=== PATIENT | male | born 1995 | race Caucasian/White ===

== ENCOUNTER 2017-10-16 12:48 | Emergency (ER) ==
[2017-10-16 12:53] VITALS: BP 126/75; TEMP 98; BMI 29.8
--- NOTE | 2017-10-16 13:04 | ED.PDOC ---
General ED Provider: Dr. JIAN BOND Chief Complaint: Hand Pain/Injury Stated Complaint: Rt Hand Pain. fell a week ago this past Sunday and now having moderate pain and swelling. was playing basketball and well with arm outstretched landing wrong on his hand. forearm extended with hand fixed hitting the ground. Experiencing discomfort with movement and flexion of wrist. Time Seen by Physician: 13:05 Mode of Arrival: Walk-In Information Source: Patient Exam Limitations: No limitations Nursing and Triage Documentation Reviewed and Agree: Yes Does patient meet sepsis criteria?: No System Inflammatory Response Syndrome: Not Applicable Sepsis Protocol: For patient's 13 years and over: Temp is 96.8 and below OR 101 and greater Pulse >90 BPM Resp >20/minute Acutely Altered Mental Status Are patient's symptoms suggestive of a new infection, such as: -Pneumonia -Skin, Soft Tissue -Endocarditis -UTI -Bone, Joint Infection -Implantable Device -Acute Abdominal Infection -Wound Infection -Meningitis -Blood Stream Catheter Infection -Unknown Review of Systems - Review Of Systems Constitutional: Reports: No symptoms Eyes: Reports: No symptoms Ears, Nose, Mouth, Throat: Reports: No symptoms Respiratory: Reports: No symptoms Cardiac: Reports: No symptoms GI: Reports: No symptoms : Reports: No symptoms Musculoskeletal: Reports: No symptoms, Joint pain Skin: Reports: No symptoms Neurological: Reports: No symptoms Endocrine: Reports: No symptoms Hematologic/Lymphatic: Reports: No symptoms All Other Systems: Reviewed and Negative Past Medical History - Past Medical History Previously Healthy: Yes Endocrine: Reports: None Cardiovascular: Reports: None Respiratory: Reports: None Hematological: Reports: None Gastrointestinal: Reports: None Genitourinary: Reports: None Neuro/Psych: Reports: None Musculoskeletal: Reports: None Cancer: Reports: None - Surgical History General Surgical History: Reports: None - Family History Family History: Reports: None - Social History Smoking Status: Never smoker Hx Substance Use: No Alcohol Screening: None - Immunizations Tetanus Shot up to Date: Yes Physical Exam - Physical Exam Appearance: Well-appearing, Well-nourished Ill-appearing: None Pain Distress: Mild Eyes: ISABEL, EOMI, Conjunctiva clear ENT: Ears normal, Nose normal, Oropharynx normal Respiratory: Airway patent, Breath sounds clear, Breath sounds equal, Respirations nonlabored Cardiovascular: RRR, Pulses normal, No rub, No murmur GI/: Soft, Nontender, No masses, Bowel sounds normal, No Organomegaly Musculoskeletal: Normal strength, ROM intact, No edema, No calf tenderness, Limited ROM (Rt 5th Metacarpal limited movement due to pain ) Skin: Warm, Dry, Normal color Neurological: Sensation intact, Motor intact, Reflexes intact, Cranial nerves intact, Alert, Oriented Psychiatric: Affect appropriate, Mood appropriate Interpretation - Radiology Interpretation Radiology Interpretation By: ED Physician Exam Interpreted: Other (Fracture =minimally displaced neck Rt 5th distal Metacarpal) Critical Care Note - Critical Care Note Total Time (mins): 0 Course - Course Orders, Labs, Meds: Orders Category Date Time Status Ketorolac Tromethamine [Toradol] MEDS 10/16/17 13:12 Discontinued 10 mg PO ONCE STA HAND, RIGHT 3 VIEWS Stat RADS 10/16/17 13:14 Completed WRIST, RIGHT 3 VIEWS Stat RADS 10/16/17 13:14 Completed Medications Discontinued Medications Generic Name Dose Route Start Last Admin Trade Name Freq PRN Reason Stop Dose Admin Ketorolac Tromethamine 10 mg 10/16/17 13:12 10/16/17 13:17 Toradol PO 10/16/17 13:13 10 mg ONCE STA Administration Vital Signs: Temp Pulse Resp BP Pulse Ox 10/16/17 12:49 98.0 F 57 L 18 126/75 97 Departure - Departure Time of Disposition: 13:45 Disposition: HOME SELF-CARE Discharge Problem: Displaced fracture of neck of right fifth metacarpal bone Instructions: Hand Fracture (ED) Condition: Good Pt referred to PMD for follow-up: Yes ([facility] in [facility]) IPMP verified?: No Additional Instructions: Keep Splint in place May take Ibuprofen for pain as neede GO TO [facility] for follow up orthopedic care tomorrow Allergies/Adverse Reactions: Allergies No Known Allergies Allergy (Verified 10/16/17 12:53) Home Medications: Ambulatory Orders 1 [No Reported Medications] 10/16/17 Disposition Discussed With: Patient
[2017-10-16] MEDS ORDERED: TORADOL PO STA (13:12)
--- NOTE | 2017-10-16 13:41 | DI ---
EXAM: Three views of the right wrist. History: Right wrist trauma. Findings: Mild to moderately displaced dorsal apex angulated fracture of the right fifth metacarpal neck with adjacent soft tissue swelling. No dislocation. No other fractures are seen. Impression: Right fifth metacarpal neck fracture
--- NOTE | 2017-10-16 13:41 | DI ---
EXAM: Three views of the right hand. History: Right hand trauma. Findings: Mild to moderately displaced and dorsal apex angulated fracture of the right fifth metacar pal neck with adjacent soft tissue swelling. No dislocation. Impression: Right fifth metacarpal neck fracture
== END 2017-10-16 14:04 | disposition home or self-care (01) ==
LOC: ED 12:48
DX: S62.336A Displaced fracture of neck of fifth metacarpal bone, right hand, initial encounter for closed fracture (principal); W19.XXXA Unspecified fall, initial encounter; Y93.67 Activity, basketball
CPT/HCPCS: 99283

== ENCOUNTER 2018-07-25 10:20 | Emergency (ER) ==
[2018-07-25 10:27] VITALS: BP 128/82; TEMP 97.9; BMI 32.3
--- NOTE | 2018-07-25 11:22 | CT ---
EXAM: CT abdomen pelvis without contrast HISTORY: Pain, diarrhea COMPARISON: None TECHNIQUE: CT abdomen pelvis performed without intravenous contrast. Coronal and sagittal reformatt ed images obtained FINDINGS: Lung bases clear. No free air. No acute abnormalities of the bones. Heart normal in siz e. Evaluation organ parenchyma limited without contrast. Liver unremarkable. Gallbladder unremarka ble. Pancreas unremarkable. Spleen unremarkable. Adrenals unremarkable. Aorta normal in caliber. No hydronephrosis or nephrolithiasis. No calculi visualized in the normal course of the ureters. P rostate normal in size. No lymphadenopathy or ascites. Minimal fat-containing periumbilical hernia. Small hiatal hernia. No dilated loops small bowel. Appendix appears normal. Colon unremarkable. No inflammatory stranding identified in the abdomen or pelvis. IMPRESSION: 1. No bowel or urinary obstruction. Normal appendix. 2. Abundant normal to top normal sized mesenteric lymph nodes, nonspecific, though can be seen in me senteric adenitis or reactive lymph nodes. 3. Small hiatal hernia.
--- NOTE | 2018-07-25 11:54 | ED.PDOC ---
General ED Provider: Dr. YAMEL LOCKETT Chief Complaint: Diarrhea Stated Complaint: abdominal pain nausea, vomiting , diarrhea Time Seen by Physician: 10:30 (seen with pt's nurse at all times ) Mode of Arrival: Walk-In Information Source: Patient Exam Limitations: No limitations Nursing and Triage Documentation Reviewed and Agree: Yes Does patient meet sepsis criteria?: No System Inflammatory Response Syndrome: Not Applicable Sepsis Protocol: For patient's 13 years and over: Temp is 96.8 and below OR 101 and greater Pulse >90 BPM Resp >20/minute Acutely Altered Mental Status Are patient's symptoms suggestive of a new infection, such as: -Pneumonia -Skin, Soft Tissue -Endocarditis -UTI -Bone, Joint Infection -Implantable Device -Acute Abdominal Infection -Wound Infection -Meningitis -Blood Stream Catheter Infection -Unknown GI Complaint Exam - Vomiting/Diarrhea Complaint/Exam Onset/Duration: 2 days Symptoms Are: Resolved Episodes of Vomiting over last 24 Hours: 7 Episodes of Diarrhea Over Last 24 Hours: 9 Initial Severity: Moderate Current Severity: Mild Character of Vomiting: Reports: Non-bilious Aggravating: Reports: None Alleviating: Reports: None Associated Signs and Symptoms: Reports: Abdominal pain. Denies: Dizziness, Light-headedness, Melena, Hematemesis, Fever, Cramping Non-GI Risk Factors: Reports: None Surgical Obstruction Risk Factors: Reports: None Related Surgical History: Reports: None Abdominal Findings: Present: None Differential Diagnoses: Viral Gastroenteritis Review of Systems - Review Of Systems Constitutional: Reports: No symptoms Eyes: Reports: No symptoms Ears, Nose, Mouth, Throat: Reports: No symptoms Respiratory: Reports: No symptoms Cardiac: Reports: No symptoms GI: Reports: Abdominal pain, Diarrhea, Nausea, Poor appetite, Vomiting : Reports: No symptoms Musculoskeletal: Reports: No symptoms Skin: Reports: No symptoms Neurological: Reports: No symptoms Endocrine: Reports: No symptoms Hematologic/Lymphatic: Reports: No symptoms All Other Systems: Reviewed and Negative Past Medical History - Past Medical History Previously Healthy: Yes Endocrine: Reports: None Cardiovascular: Reports: None Respiratory: Reports: None Hematological: Reports: None Gastrointestinal: Reports: None Genitourinary: Reports: None Neuro/Psych: Reports: None Musculoskeletal: Reports: None Cancer: Reports: None - Surgical History General Surgical History: Reports: None - Family History Family History: Reports: None - Social History Smoking Status: Never smoker Hx Substance Use: No Alcohol Screening: None - Immunizations Tetanus Shot up to Date: Yes Physical Exam - Physical Exam Appearance: Well-appearing, No pain distress, Well-nourished Eyes: ISABEL, EOMI, Conjunctiva clear ENT: Ears normal, Nose normal, Oropharynx normal Respiratory: Airway patent, Breath sounds clear, Breath sounds equal, Respirations nonlabored Cardiovascular: RRR, Pulses normal, No rub, No murmur GI/: Soft, Nontender, No masses, Bowel sounds normal, No Organomegaly Musculoskeletal: Normal strength, ROM intact, No edema, No calf tenderness Skin: Warm, Dry, Normal color Neurological: Sensation intact, Motor intact, Reflexes intact, Cranial nerves intact, Alert, Oriented Psychiatric: Affect appropriate, Mood appropriate Critical Care Note - Critical Care Note Total Time (mins): 0 Course - Course Hematology/Chemistry: 07/25/18 10:50 07/25/18 10:50 Orders, Labs, Meds: Lab Review 07/25/18 07/25/18 07/25/18 10:40 10:50 10:50 WBC 6.43 RBC 5.38 Hgb 15.4 Hct 43.9 MCV 81.6 MCH 28.6 MCHC 35.1 RDW Coeff of [place] 12.4 Plt Count 197 Immature Gran % (Auto) 0.2 Neut % (Auto) 76.2 Lymph % (Auto) 14.6 [place] % (Auto) 7.9 Eos % (Auto) 0.8 Baso % (Auto) 0.3 Immature Gran # (Auto) 0.0 Neut # (Auto) 4.9 Lymph # (Auto) 0.9 [place] # (Auto) 0.5 Eos # (Auto) 0.1 Baso # (Auto) 0.0 Sodium 140.5 Potassium 3.73 Chloride 103.7 Carbon Dioxide 26.1 Anion Gap 14.43 BUN 13.8 Creatinine 0.83 Estimated GFR (MDRD) 116.00 BUN/Creatinine Ratio 16.62 Glucose 96.9 Calcium 9.17 Total Bilirubin 0.99 AST 60.9 H ALT 95.2 H Alkaline Phosphatase 101.4 Total Protein 8.13 Albumin 5.05 H Globulin 3.08 Albumin/Globulin Ratio 1.63 Urine Color Yellow Urine Clarity Clear Urine pH 6.0 Ur Specific [place] 1.020 Urine Protein 1+ Urine Glucose (UA) Negative Urine Ketones Negative Urine Blood Negative Urine Nitrite Negative Urine Bilirubin Negative Urine Urobilinogen 2.0 Ur Leukocyte Esterase Negative Urine Microscopic RBC 0-2 Urine Microscopic WBC 0-2 Ur Squamous Epith Cells Not present Urine Mucus 1+ Orders Category Date Time Status CBC W/ AUTO DIFF Stat LAB 07/25/18 10:50 Completed COMPREHENSIVE METABOLIC PANEL Stat LAB 07/25/18 10:50 Completed URINALYSIS C & S IF INDICATED Stat LAB 07/25/18 10:[address] ABDOMEN/PELVIS WO CONTRAST Stat RADS 07/25/18 10:38 Completed Vital Signs: Temp Pulse Resp BP Pulse Ox 07/25/18 10:20 97.9 F 80 20 128/82 99 Departure - Departure Time of Disposition: 11:54 Disposition: HOME SELF-CARE Discharge Problem: Diarrhea, Gastroenteritis Instructions: Gastroenteritis (DC) Condition: Good Pt referred to PMD for follow-up: Yes IPMP verified?: No Additional Instructions: Please call your Family Physician as soon as possible to schedule a follow-up appointment.your liver enzymes are high please see [facility] for follow up . Prescriptions: Diphenoxylate HCl/Atropine [Lomotil] 1 tab PO TID #7 tablet Ondansetron HCl [Zofran Tab] 4 mg PO Q8H #6 tablet Allergies/Adverse Reactions: Allergies No Known Allergies Allergy (Verified 07/25/18 10:38) Home Medications: Ambulatory Orders Diphenoxylate HCl/Atropine [Lomotil] 1 tab PO TID #7 tablet 07/25/18 Ondansetron HCl [Zofran Tab] 4 mg PO Q8H #6 tablet 07/25/18
== END 2018-07-25 12:06 | disposition home or self-care (01) ==
LOC: ED 10:20
DX: K52.9 Noninfective gastroenteritis and colitis, unspecified (principal)
CPT/HCPCS: 36415; 80053; 80074; 81001; 85025; 99283